=== PATIENT | male | born 1980 | race Caucasian/White ===

== ENCOUNTER 2018-01-07 14:10 | Emergency (ER) | payer MEDICAID, SELFPAY ==
[2018-01-07 14:11] VITALS: BP 180/118; PULSE 109; RESP 18; TEMP 36.7; O2SAT 100; BMI 33.7
[2018-01-07 14:24] VITALS: BP 151/100; PULSE 96; RESP 16; O2SAT 98
--- NOTE | 2018-01-07 15:07 | ED.DCSUM_ITS ---
- ER Visit Summary Date of Service: 01/07/18 Chief Complaint: Laceration to left hand History of Present Illness: The patient is a 37 M who was using a knife to cut a piece of wood when it slipped and he sustained a laceration to his left hand. He is uncertain of his last tetanus immunization. He is concerned because he has a history of prior laceration which he delayed care for and actually had a tendon injury. He does note that he is able to move everything normally. He denies any loss of function or weakness. No paresthesias. Physical Examination: Afebrile vitals are unremarkable Heart regular Lungs clear There is a 2 cm laceration over the thenar eminence near the base of thumb with no active bleeding he has normal distal sensation active full range of motion of the digits and hand normal opposition of the digits no evidence of tendon laceration Test Results: Not indicated Emergency Department Course and Treatment: Tetanus was updated and laceration locally anesthetized with 1% lidocaine. The laceration was closed with a total of 5 simple interrupted 40 nonabsorbable sutures. Patient instructed on local wound care. He was instructed on signs and symptoms of infection to monitor for and was discharged home. Treatment Plan: [] Disposition: Discharge Impression: Left hand laceration This note was generated with [employer] dictation software. It may contain incorrect words, spelling, and punctuation that were not noted in review of the chart prior to signing ED Disposition - Plan for ED Patient: Chief Complaint: Laceration Referrals: NOT,DEFINED [Primary Care Provider] -
--- NOTE | 2018-01-07 15:07 | ED.DEP ---
ED Disposition - Plan for ED Patient: Chief Complaint: Laceration Instructions: ED Laceration Hand Referrals: NOT,DEFINED [Primary Care Provider] - Jun Galeano DO [STAFF PHYSICIAN] -
--- OUTSIDE RECORDS SUMMARY | 2018-01-07 15:10 | XMS RPT_ITS ---
:1980 Author Organization [facility] Care Team Providers Name Role Phone Emmanuel Curry Attending Unavailable Primay Care Physicia, No Primary Care Unavailable PROBLEMS PROBLEMS No Problem Records FoundPROCEDURES PROCEDURES No Procedure Records FoundRESULTS RESULTS DISCHARGE INSTRUCTION Observed: 01/07/2018 Status: F Source: [place] 3:08 PM [facility] [place] [facility] [id number] [place], [place] [address]Rujmymfth Zudxoplyxxd07/11/18 1507MR#: [id number] Acct: [id number]: HELGA WEBER Rep #: [id number]: 1980 37 From: Emmanuel Curry MDPCP: NOT, DEFINED Status: PRE ERED Disposition- Plan for ED Patient:Chief Complaint: LacerationInstructions: ED Laceration HandReferrals:NOT,DEFINED [Primary Care Provider] -Jun Galeano, DO [STAFF PHYSICIAN] -What to do if you have ProblemsFor any increased pain, shortness of breath, bleeding, nausea or vomiting, chest pain, or anyunexpected problems, contact your Primary Care Provider. Call [facility] ([phone])or report to the closest Emergency Room.Call 911 if necessary.10/14 1508 <Electronically signed by Emmanuel Curry MD>Date Emmanuel Curry [facility] [place] [place] Signature (If Indicated): Date CC: DEFINED NOT; Xiang Pate MD EMERGENCY DEPARTMENT Observed: 01/07/2018 Status: F Source: [place] SUMMARY 3:07 PM [facility] RE[facility] [id number] [place] [address]Erqpbvmsl Department Dcsqkzn24/11/18 1504MR#: [id number] Acct: [id number]: HELGA WEBER Rep #: [id number]: 1980 37 From: Emmanuel Curry MDPCP: NOT, DEFINED Status: PRE ER- ER Visit SummaryDate of Service: 01/07/18Chief Complaint: Laceration to left handHistory of Present Illness: The patient is a 37 M who was using a knife to cut a piece of woodwhen it slipped and he sustained a laceration to his left hand. He is uncertain of his lasttetanus immunization. He is concerned because he has a history of prior laceration which hedelayed care for and actually had a tendon injury. He does note that he is able to moveeverything normally. He denies any loss of function or weakness. No paresthesias.Physical Examination: Afebrile vitals are unremarkableHeart regularLungs clearThere is a 2 cm laceration over the thenar eminence near the base of thumb with no activebleeding he has normal distal sensation active full range of motion of the digits and handnormal opposition of the digits no evidence of tendon lacerationTest Results: Not indicatedEmergency Department Course and Treatment: Tetanus was updated and laceration locallyanesthetized with 1% lidocaine. The laceration was closed with a total of 5 simple [id number] nonabsorbable sutures. Patient instructed on local wound care. He was instructed on signsand symptoms of infection to monitor for and was discharged home.Treatment Plan: []Disposition: DischargeImpression: Left hand lacerationThis note was generated with [employer] software. It may contain incorrect words,spelling, and punctuation that were not noted in review of the chart prior to signingED Disposition- Plan for ED Patient:Chief Complaint: LacerationReferrals:NOT,DEFINED [Primary Care Provider] -What to do if you have ProblemsFor any increased pain, shortness of breath, bleeding, nausea or vomiting, chest pain, or anyunexpected problems, contact your Primary Care Provider. Call [facility] ([phone])or report to the closest Emergency Room.Call 911 if necessary.01/07/18 1507 <Electronically signed by Emmanuel Curry MD> Date Emmanuel Curry [facility] [place] Signature (If Indicated): Date ___CC: DEFINED NOT; Xiang Pate MD ALLERGIES ALLERGIES DATE TYPE / CODE NAME / CODE REACTION SEVERITY SOURCE 01/07/2018 Drug No Known Unknown [facility] Allergy/4160 Allergies/F00 [facility] 10[facility](SNOMED [id number](RXNOR Repository CT) M) ENCOUNTERS ENCOUNTERS ADMIT/DISCHARGE ACCOUNT ADMITTING ENCOUNTER LOCATION SOURCE NUMBER CLASS 01/07/2018 [id number] Emergency [facility] ing:ED Repository PAYERS PAYERS ENCOUNTER GUARANTOR PAYER SUBSCRIBER SOURCE 01/07/2018 Helga S Primary Helga Monroe Insurance:Edmundo FoxB: [facility] Number: [id number] [address]Zcr: [phone]) [id number] Repository [phone] () Date:[id number] [place] [id number]: 01/07/2018 Secondary NOT GIVENTROY [place] Insurance:SELF PAY [facility] Number: Effective Repository Date:2018-01-07
[2018-01-07 15:16] VITALS: BP 153/100; PULSE 87; RESP 16; O2SAT 97
--- NOTE | 2018-01-07 15:44 | ED.RN ---
THIS NURSE CALLED PT TO INFORM HIM HE WAS TO HAVE A TETANUS SHOT, PT UNABLE TO RETURN TO E.D. AT THIS TIME AND WILL FOLLOW UP TO RECEIVED A TETANUS SHOT WITH HEALTH DEPARTMENT.
--- NOTE | 2018-01-07 15:49 | ED.RN ---
DR. NELSON AWARE THAT PT DID NOT RECEIVE TETANUS AND PT WILL FOLLOW UP WITH HEALTH DEPARTMENT, NO NEW ORDERS AT THIS TIME.
== END 2018-01-07 15:17 | disposition home or self-care (01) ==
PROVIDERS: Emergency Provider Emergency Medicine
DX: S61.412A Laceration without foreign body of left hand, initial encounter (principal); W26.0XXA Contact with knife, initial encounter; Y93.89 Activity, other specified; Y92.9 Unspecified place or not applicable; Z72.0 Tobacco use
CPT/HCPCS: 12001; 99282